=== PATIENT | male | born 1945 | race Caucasian/White ===

== ENCOUNTER 2018-06-30 14:10 | Observation (INO) | payer BC, MEDICARE, OTHER ==
--- NOTE | 2018-06-30 14:43 | ED Physician Documentation ---
PD HPI ALTERED MENTAL STATUS - Stated complaint Stated Complaint: LETHARGIC - Chief complaint Chief Complaint: General - History obtained from History obtained from: Patient - History of Present Illness Timing - onset: How many days ago (3) Timing - duration: Days (3) Timing - details: Gradual onset, Still present Quality / character: Other (general weakness and some confused) Associated symptoms: No: Fever Contributing factors: Anticoagulated, Intoxicated (says he had not had a drink for 1 1/2 days, and then was just 2 drinks.). No: New medication, Recent injury Basline status: Alert and oriented X 3, Ambulatory Similar symptoms before: Has not had sx before Recently seen: Not recently seen Review of Systems Constitutional: denies: Fever, Chills, Myalgias Cardiac: denies: Chest pain / pressure, Palpitations, Pedal edema, Calf pain Respiratory: reports: Dyspnea. denies: Cough, Wheezing GI: denies: Abdominal Pain, Nausea, Vomiting, Diarrhea Neurologic: reports: Generalized weakness, Confused. denies: Focal weakness, Numbness, Headache, Head injury Psychiatric: denies: Depressed PD PAST MEDICAL HISTORY - Past Medical History Cardiovascular: Atrial fibrillation Respiratory: None Neuro: Other (brain tumor, slow growing) Endocrine/Autoimmune: None - Present Medications Home Medications: Ambulatory Orders Medication Instructions Recorded Confirmed Albuterol Sulf [Ventolin Hfa 1 applic INH DAILY 06/30/18 06/30/18 Inhaler] Apixaban [Eliquis] 1 tab PO DAILY 06/30/18 06/30/18 Atorvastatin [Lipitor] 1 tab PO DAILY 06/30/18 06/30/18 Flu Vacc [id number](65Yr Up)/Pf 06/30/18 [Fluzone High-Dose 2017- Syr] Fluconazole 50 mg PO DAILY 06/30/18 06/30/18 Fluticasone/Vilanterol [Breo 1 applic INH DAILY 06/30/18 06/30/18 Ellipta 100-25 Mcg INH] Levetiracetam [Keppra Xr] 1 tab PO DAILY 06/30/18 06/30/18 Metoprolol Succinate [Toprol Xl] 1 tab PO DAILY 06/30/18 06/30/18 Tamsulosin [Flomax] 1 tab PO DAILY 06/30/18 06/30/18 diltiaZEM [Cardizem] 240 mg PO DAILY 06/30/18 06/30/18 - Allergies Allergies/Adverse Reactions: Allergies Allergy/AdvReac Type Severity Reaction Status Date / Time No Known Drug Allergies Allergy Verified 06/30/18 14:20 PD ED PE NORMAL - Vitals Vital signs reviewed: Yes - General General: Alert and oriented X 3, No acute distress, Well developed/nourished - HEENT HEENT: Pharynx benign, Other (smell of alcohol on breath) - Neck Neck: Supple, no meningeal sign, No adenopathy - Cardiac Cardiac: No murmur. 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, No motor deficit, Normal speech Eye Opening: Spontaneous Motor: Obeys Commands Verbal: Oriented GCS Score: 15 - Psych Psych: Normal mood Results - Vitals Vitals: Vital Signs - 24 hr 06/30/18 06/30/18 06/30/18 14:12 15:00 15:40 Temperature 36.6 C Heart Rate 121 H 144 H 136 H Respiratory 18 16 11 L Rate Blood Pressure 123/73 121/91 H 128/93 H O2 Saturation 99 96 98 06/30/18 06/30/18 06/30/18 15:50 15:52 15:58 Temperature Heart Rate 100 94 87 Respiratory 18 15 14 Rate Blood Pressure 121/81 H 120/82 H O2 Saturation 97 97 98 06/30/18 06/30/18 06/30/18 16:11 16:15 16:17 Temperature Heart Rate 82 76 84 Respiratory 11 L 12 16 Rate Blood Pressure 103/80 120/75 100/63 O2 Saturation 96 92 94 Oxygen O2 Source Room air - Labs Labs: Laboratory Tests 06/30/18 06/30/18 06/30/18 14:45 14:55 15:45 WBC 7.2 RBC 4.35 L Hgb 14.7 Hct 43.2 MCV 99.3 H MCH 33.7 H MCHC 34.0 RDW 14.8 Plt Count 196 MPV 9.2 Neut # (Auto) 5.0 Lymph # (Auto) 1.4 L [place] # (Auto) 0.7 Eos # (Auto) 0.0 Baso # (Auto) 0.0 Absolute Nucleated RBC 0.01 Nucleated RBC % 0.1 Sodium 139 Potassium 4.2 Chloride 106 Carbon Dioxide 21 Anion Gap 12.0 BUN 9 Creatinine 0.6 Estimated GFR (MDRD) 132 Glucose 89 Calcium 8.2 L Magnesium 1.9 Total Bilirubin 1.9 H AST 89 H ALT 53 Alkaline Phosphatase 96 B-Natriuretic Peptide Total Protein 6.5 L Albumin 3.7 Globulin 2.8 Albumin/Globulin Ratio 1.3 Lipase 32 TSH Urine Color YELLOW Urine Clarity CLEAR Urine pH 6.0 Ur Specific [place] 1.020 Urine Protein NEGATIVE Urine Glucose (UA) NEGATIVE Urine Ketones NEGATIVE Urine Occult Blood TRACE-INTA Urine Nitrite NEGATIVE Urine Bilirubin NEGATIVE Urine Urobilinogen 1 (NORMAL) Ur Leukocyte Esterase NEGATIVE Ur Microscopic Review NOT INDICATED Urine Culture Comments NOT INDICATED Ethyl Alcohol 206.2 06/30/18 06/30/18 15:45 15:45 WBC RBC Hgb Hct MCV MCH MCHC RDW Plt Count MPV Neut # (Auto) Lymph # (Auto) [place] # (Auto) Eos # (Auto) Baso # (Auto) Absolute Nucleated RBC Nucleated RBC % Sodium Potassium Chloride Carbon Dioxide Anion Gap BUN Creatinine Estimated GFR (MDRD) Glucose Calcium Magnesium Total Bilirubin AST ALT Alkaline Phosphatase B-Natriuretic Peptide 174 H Total Protein Albumin Globulin Albumin/Globulin Ratio Lipase TSH 0.69 Urine Color Urine Clarity Urine pH Ur Specific [place] Urine Protein Urine Glucose (UA) Urine Ketones Urine Occult Blood Urine Nitrite Urine Bilirubin Urine Urobilinogen Ur Leukocyte Esterase Ur Microscopic Review Urine Culture Comments Ethyl Alcohol - Rads (name of study) chest xray Radiology: Prelim report reviewed (no CHF) head CT Radiology: Prelim report reviewed (brain mass iwth mild edema, similar to 2010. no ICH nor acute process. ) PD MEDICAL DECISION MAKING - ED course Complexity details: reviewed results (There is no obvious significant change in his brain tumor compared to 2010 on our imaging. This is a known process for him. He does have an elevated alcohol level and this may be contributing to some of the tiredness and lethargy over the last few days. He has a rapid A. fib and this could also be likely a cause of the fatigue over the last few days. He does not feel the symptoms here so is unclear how long he has been in the rapid A. fib. He has a couple of empty medicine bottles at home according to his that had been empty for a few days and had not made it to the pharmacy. Is not sure which of the medicines he is out of. It could make sense if he is out of his diltiazem or metoprolol. At this point his rate is improved with IV medications but is creeping back up to 110 now after just a short time. I do not feel that it is actually rate controlled at this point. He may need repeat dosing IV and oral and would want to ensure that his general fatigue and symptoms are improved.), re-evaluated patient (Took several doses IV to get rate control and then was creeping back up to 110 rate. I think needs repeat IV and resume PO. ), considered differential, d/w patient - Sepsis Event Vital Signs: Vital Signs - 24 hr 06/30/18 06/30/18 06/30/18 14:12 15:00 15:40 Temperature 36.6 C Heart Rate 121 H 144 H 136 H Respiratory 18 16 11 L Rate Blood Pressure 123/73 121/91 H 128/93 H O2 Saturation 99 96 98 06/30/18 06/30/18 06/30/18 15:50 15:52 15:58 Temperature Heart Rate 100 94 87 Respiratory 18 15 14 Rate Blood Pressure 121/81 H 120/82 H O2 Saturation 97 97 98 06/30/18 06/30/18 06/30/18 16:11 16:15 16:17 Temperature Heart Rate 82 76 84 Respiratory 11 L 12 16 Rate Blood Pressure 103/80 120/75 100/63 O2 Saturation 96 92 94 Oxygen O2 Source Room air Departure - Departure Disposition: ED Place in Observation Clinical Impression: Generalized weakness, Atrial fibrillation with rapid ventricular response Alcohol intoxication Qualifiers: Complication of substance-induced condition: uncomplicated Qualified Code(s): F10.920 - Alcohol use, unspecified with intoxication, uncomplicated Condition: Stable Record reviewed to determine appropriate education?: Yes Discharge Date/Time: 06/30/18 17:45
[2018-06-30 15:08] LABS: BILIRUBIN,URINE NEGATIVE (NEGATIVE); GLUCOSE, URINE (UA) NEGATIVE (NEGATIVE); KETONES,URINE (UA) NEGATIVE (NEGATIVE); LEUKOCYTE ESTERASE, URINE NEGATIVE (NEGATIVE); NITRITE,URINE NEGATIVE (NEGATIVE); OCCULT BLOOD,URINE TRACE-INTA (NEGATIVE); PROTEIN,URINE NEGATIVE (NEGATIVE); UROBILINOGEN,URINE 1 (NORMAL) E.U./dL (NORMAL)
[2018-06-30] MEDS ORDERED: SODIUM CHLORIDE 0.9% 1,000 ML IV ONE (15:16)
[2018-06-30] MEDS ORDERED: diltiaZEM INJ 5 MG/ML VIAL IVP STA ×3 (15:16→16:53)
[2018-06-30 15:18] LABS: CLARITY,URINE CLEAR (CLEAR)
[2018-06-30 15:35] LABS: BASOPHILS % (AUTO) 0.6 %; EOSINOPHILS % (AUTO) 0.7 %; HGB - HEMOGLOBIN 14.7 g/dL (14.0-18.0); LYMPHOCYTES # (AUTO) 1.4 10^3/uL (1.5-3.5); MEAN CORPUSCULAR HEMOGLOBIN 33.7 pg (27.0-31.0); MEAN CORPUSCULAR VOLUME 99.3 fL (80.0-94.0); MEAN PLATELET VOLUME 9.2 fL (7.4-11.4); MONOCYTES # (AUTO) 0.7 10^3/uL (0.0-1.0); MONOCYTES % (AUTO) 9.3 %; NEUTROPHILS % (AUTO) 69.4 %; PLT - PLATELET COUNT 196 10^3/uL (130-450); RED BLOOD COUNT 4.35 10^6/uL (4.70-6.10); RED CELL DISTRIBUTION WIDTH 14.8 % (12.0-15.0); WHITE BLOOD COUNT 7.2 x10^3/uL (4.8-10.8)
--- NOTE | 2018-06-30 15:53 | CT Report ---
Reason: recent fall? on eliquis, lethargic Procedure Date: 06/30/2018 Accession Number: [id number] / [id number] Procedure: CT - Head W/O CPT Code: FULL RESULT: EXAM: CT HEAD EXAM DATE: 06/30/2018 03:29 PM. CLINICAL HISTORY: Recent fall. Lethargy. On Eliquis. COMPARISON: CT head and MRI brain 04/04/2010. TECHNIQUE: Multiaxial CT images were obtained from the foramen magnum to the vertex. Reformats: Sagittal and coronal. IV contrast: None. In accordance with CT protocol optimization, one or more of the following dose reduction techniques were utilized for this exam: automated exposure control, adjustment of mA and/or KV based on patient size, or use of iterative reconstructive technique. FINDINGS: Parenchyma: Similar size and interval increased calcification of an ill-defined partially calcified mass in the anterior right frontal lobe and anterior right temporal lobe, the largest component in the anterior-inferior frontal lobe measuring approximately 2.3 x 2.1 cm (12/10). Slightly increased adjacent low attenuation in the right frontal lobe possibly representing edema. No intraparenchymal hemorrhage or CT findings of evolving acute/subacute infarct. Alonso-white matter differentiation is distinct. Extraaxial Spaces: Normal for age. No subdural or epidural collections identified. Ventricles: Normal in size and position. Sinuses and Orbits: Imaged paranasal sinuses, orbits, and mastoids show no significant abnormality. Bones: Interval right frontal plate. Other: Left lens replacement. The visualized superficial soft tissues are unremarkable; no hematoma or edema is evident. IMPRESSION: 1. Similar size and increased calcification of ill-defined partially calcified mass in the anterior right frontal lobe and anterior right temporal lobe. 2. Slightly increased adjacent low attenuation in the right frontal lobe possibly representing edema. 3. No intracranial bleed. [facility]
--- NOTE | 2018-06-30 16:00 | XRAY Report ---
Reason: chest pain left sided Procedure Date: 06/30/2018 Accession Number: [id number] / [id number] Procedure: XR - Chest 2 View X-Ray CPT Code: 85867 FULL RESULT: EXAM: CHEST RADIOGRAPHY EXAM DATE: 06/30/2018 03:38 PM. CLINICAL HISTORY: Chest pain left sided. COMPARISON: None. TECHNIQUE: 2 views. FINDINGS: Lungs/Pleura: There is a linear density in the right mid lung. The left lung is clear. Lung volumes are normal. Negative for pleural effusion and pneumothorax. Mediastinum: Heart and mediastinal contours are unremarkable. Other: None. IMPRESSION: 1. No acute process in the left chest. Mild right midlung atelectasis or scar. [facility]
[2018-06-30 16:03] LABS: ALBUMIN 3.7 g/dL (3.2-5.5); ALBUMIN/GLOBULIN RATIO 1.3 (1.0-2.2); BILIRUBIN,TOTAL 1.9 mg/dL (0.2-1.0); CALCIUM 8.2 mg/dL (8.5-10.3); CREATININE 0.6 mg/dL (0.6-1.2); MAGNESIUM 1.9 mg/dL (1.7-2.8); TOTAL PROTEIN 6.5 g/dL (6.7-8.2)
[2018-06-30] MEDS ORDERED: SODIUM CHLORIDE FLUSH 0.9% 10 ML SYRINGE IVP PRN (16:56)
[2018-06-30] MEDS ORDERED: ONDANSETRON 4 MG/2 ML VIAL IVP PRN (16:56)
[2018-06-30] MEDS ORDERED: ZOLPIDEM 5 MG TABLET PO PRN (16:56)
[2018-06-30] MEDS ORDERED: PROCHLORPERAZINE 10 MG/2 ML VIAL IVP PRN (16:56)
[2018-06-30] MEDS ORDERED: PROMETHAZINE 25 MG/1 ML VIAL IM PRN (16:56)
--- NOTE | 2018-06-30 17:06 | HISTORY & PHYSICAL EXAMINATION ---
Chief Complaint - Chief Complaint Chief Complaint: Fatigue History of Present Illness - Admitted From Admitted From:: Emergency Departement - History Obtained From Records Reviewed: Yes History obtained from: Patient and his Exam Limitations: None - History of Present Illness HPI Comment/Other: Patient is a 73-year-old gentleman with a past medical history significant for oligodendroglioma status post chemotherapy currently on Keppra for seizure prevention with minimal residual symptoms, atrial fibrillation on Eliquis, hypertension, hyperlipidemia, history of coronary artery disease status post stent, asthma and osteoarthritis who presented to the emergency department with a chief complaint of fatigue. The patient states that over the last 2 days he has been having increasing fatigue, been feeling sleepy all throughout the day and has had an unsteady gait. The patient also states that he has had some shor tness of breath with exertion which is new for him. The patient's partner states that the patient has been sleeping all throughout the day since yesterday. She also notes that he has had decreased appetite. The patient states that he is recently run out of 2 bottles of his pills but did not know which pills that was. The patient denies any chest pain or palpitations. He states that he is a nightly drinker and did drink about a bottle of wine last night. The patient denies any fevers or chills. The patient denies any urinary urgency, urinary frequency or dysuria. The patient denies any headaches, neck stiffness, back pain, skin changes, abdominal pain, nausea, vomiting, diarrhea or any cough. On presentation to the emergency department the patient was afebrile, he was tachycardic with heart rate as high as 144 with normal blood pressure and not in any respiratory distress. The patient underwent routine lab work which revealed a mildly elevated bilirubin and AST otherwise was unremarkable. The patient's TSH was normal. Patient's UA was negative. The patient's blood alcohol level was 206. The patient did undergo a CT of his head which revealed an unchanged ill-defined partially calcified mass in the anterior right frontal lobe and anterior right lobe which represents the patient's oligodendroglioma. The patient also had a chest x-ray which revealed no acute process in the chest. The patient's EKG did reveal atrial fibrillation with a rapid ventricular rate. The patient was given 3 doses of IV diltiazem with each dose the patient's heart rate continued to creep up into the mid 100s. The emergency room physician felt that this was not well controlled A. fib and asked that we place the patient in observation for further rate control. The patient was placed in observation. History - Past Medical History Cardiovascular: reports: Hypertension, High cholesterol, Coronary artery disease, Atrial fibrillation Respiratory: reports: Asthma Neuro: reports: Seizure disorder, Other (Brain tumor) Endocrine/Autoimmune: reports: None GI: reports: None : reports: None Musculoskeletal: reports: Osteoarthritis Other Past Medical History: Ogliodedroma(brain tumor) with oral chemo(now done),keppra for SZ associated with tumor, chronic right hip pain - Past Surgical History Ortho: reports: Knee replacement, Rotator cuff repair, Shoulder arthroplasty, Other - Family & Social History Family History: Mother: (Mother and father both lived into their 80s and were healthy), Father: , Brother: , Cancer (Patient's brother had Hodgkin's lymphoma and in his 20s) Living arrangement: At home Living Situation: Alone Social History Notes: The patient lives in [place], [place]. He lives a few doors down from his partner. He states that he is still completely independent despite the brain tumor. He ambulates without any assistance device. He has a dog whom he walks daily. He hikes every Monday. He is a retired psychologist. He moved to [facility] just 4 months ago. Previously he lived in [place]. He has no biological children. He does not smoke cigarettes. He does drink alcohol he states up to a bottle of wine a night although his partner states that he does drink more than what he is telling us. He denies any illicit drug use. - POLST Patient has POLST: No POLST Status: Full Code Meds/Allgy - Home Medications Home Medications: Ambulatory Orders Medication Instructions Recorded Confirmed Albuterol Sulf [Ventolin Hfa 1 applic INH DAILY 06/30/18 06/30/18 Inhaler] Apixaban [Eliquis] 1 tab PO DAILY 06/30/18 06/30/18 Atorvastatin [Lipitor] 1 tab PO DAILY 06/30/18 06/30/18 Flu Vacc [id number](65Yr Up)/Pf 06/30/18 [Fluzone High-Dose Syr] Fluconazole 50 mg PO DAILY 06/30/18 06/30/18 Fluticasone/Vilanterol [Breo 1 applic INH DAILY 06/30/18 06/30/18 Ellipta 100-25 Mcg INH] Levetiracetam [Keppra Xr] 1 tab PO DAILY 06/30/18 06/30/18 Metoprolol Succinate [Toprol Xl] 1 tab PO DAILY 06/30/18 06/30/18 Tamsulosin [Flomax] 1 tab PO DAILY 06/30/18 06/30/18 diltiaZEM [Cardizem] 240 mg PO DAILY 06/30/18 06/30/18 - Allergies Allergies/Adverse Reactions: Allergies Allergy/AdvReac Type Severity Reaction Status Date / Time No Known Drug Allergies Allergy Verified 06/30/18 14:20 Review of Systems - Other Findings Other Findings: A comprehensive review of systems was performed the pertinent positives and negatives are stated above in the HPI and the remainder of the review of systems is negative. Prior Level of Functionality: Patient is completely independent with all his ADLs Exam - Vital Signs Reviewed Vital Signs: Yes Vital Signs: Vital Signs x48h Temp Pulse Resp BP Pulse Ox 06/30/18 16:17 84 16 100/63 94 06/30/18 16:15 76 12 120/75 92 06/30/18 16:11 82 11 L 103/80 96 06/30/18 15:58 87 14 98 06/30/18 15:52 94 15 120/82 H 97 06/30/18 15:50 100 18 121/81 H 97 06/30/18 15:40 136 H 11 L 128/93 H 98 06/30/18 15:00 144 H 16 121/91 H 96 06/30/18 14:12 36.6 C 121 H 18 123/73 99 - Physical Exam General Appearance: positive: No acute distress, Alert, Other (Slightly slow to answer questions, Breath smells like alcohol) Eyes Bilateral: positive: Normal inspection, PERRL, EOMI, No lid inflammation, Conjunctivae nml, No scleral icterus ENT: positive: ENT inspection nml, Pharynx nml, Dry mucous membranes. negative: Purulent nasal drainage, Pharyngeal erythema, Oral lesions Neck: positive: Nml inspection, Thyroid nml, No JVD, Trachea midline. negative: Thyromegaly, Lymphadenopathy (R), Lymphadenopathy (L), Carotid bruit, Tracheal deviation Respiratory: positive: Chest non-tender, No respiratory distress, Wheezes (Scattered wheezes). negative: Rales, Rhonchi Cardiovascular: positive: No murmur, No gallop, Irregularly irregular Peripheral Pulses: positive: 2+ Abdomen: positive: Non-tender, No organomegaly, Nml bowel sounds, No distention. negative: Tenderness, Guarding, Rebound, Hepatomegaly Back: positive: Nml inspection. negative: CVA tenderness (R), CVA tenderness (L) Skin: positive: Color nml, No rash, Warm, Dry. negative: Cyanosis, Diaphoresis, Pallor, Skin rash Extremities: positive: Non-tender, Full ROM, Nml appearance, No pedal edema Neurologic/Psychiatric: positive: Oriented x3, CN's nml (2-12), Motor nml, Sensation nml, Mood/affect nml Conclusion/Plan - Problem List (1) Atrial fibrillation with rapid ventricular response Conclusion/Plan: Patient presented to the emergency department with fatigue and shortness of breath with exertion. On presentation the patient was found to be in A. fib with rapid ventricular rate into the 150s. The patient did improve with several doses of IV diltiazem. It appears the patient may have run out of his home diltiazem or metoprolol. The patient's symptoms for the last few days were likely due to his A. fib RVR. Despite the doses of IV diltiazem in the emergency department the patient's rate was not fully controlled therefore he is being placed in observation for monitoring and better rate control. Patient's TSH is normal. Plan: Restart the patient's p.o. metoprolol and diltiazem we will give a dose right away IV diltiazem as needed for rate greater than 110 Telemetry monitoring Echocardiogram Troponins x3 Continue Eliquis (2) Oligodendroglioma Conclusion/Plan: Patient has a history of a oligodendroglioma with minimal residual effects. According to his partner he does have some memory loss but is otherwise fully functional and still hikes every Monday and fully independent. The patient does have some changes of edema on his CT of his head and this could be the cause of his current fatigue and sleepiness and other symptoms. However the patient is also been having A. fib with RVR and was intoxicated on presentation which could also be an explanation for his current symptoms. The patient has been having some ataxic gait again this could be from his alcohol intoxication. Plan: Patient will be continued on his dose of Keppra for seizure prevention We will monitor if the patient's symptoms persist of ataxia and fatigue or lethargy we will need to consider an MRI and possible consultation from oncology. (3) Alcohol intoxication Conclusion/Plan: Patient has a history of alcohol abuse and on presentation is intoxicated with a blood alcohol level of 206. Since the patient still has quite a bit of alcohol on board I doubt that he will go into withdrawal while he is hospitalized. If he does go into withdrawal we will place him on [facility] protocol. The patient was counseled on the need to cut down on his drinking. He does not believe he is an alcoholic. Qualifiers: Complication of substance-induced condition: uncomplicated Qualified Code(s): F10.920 - Alcohol use, unspecified with intoxication, uncomplicated (4) Hypertension Conclusion/Plan: Patient has a history of hypertension blood pressure is well controlled on presentation to the emergency department. The patient will be continued on his home doses of metoprolol and diltiazem which also are for rate control of his atrial fibrillation. We will continue to monitor the patient's blood pressure and titrate medications as needed. Qualifiers: Hypertension type: essential hypertension Qualified Code(s): I10 - Essential (primary) hypertension (5) Hyperlipidemia Conclusion/Plan: Patient is a history of hyperlipidemia and is on Lipitor we will continue the patient's Lipitor was hospitalized. Stable Qualifiers: Hyperlipidemia type: unspecified Qualified Code(s): E78.5 - Hyperlipidemia, unspecified (6) Asthma Conclusion/Plan: Patient has a history of asthma and is currently stable without any exacerbation. Patient will be placed on budesonide twice daily and formoterol twice daily along with albuterol as needed while he is hospitalized. Qualifiers: Asthma severity: mild Asthma persistence: intermittent Asthma complication type: uncomplicated Qualified Code(s): J45.20 - Mild intermittent asthma, uncomplicated - Lab Results Lab results reviewed: Yes Fish Bones: 06/30/18 14:45 06/30/18 15:45 Other Lab Results: Laboratory Results WBC 7.2 x10^3/uL (4.8-10.8) 06/30/18 14:45 RBC 4.35 10^6/uL (4.70-6.10) L 06/30/18 14:45 Hgb 14.7 g/dL (14.0-18.0) 06/30/18 14:45 Hct 43.2 % (42.0-52.0) 06/30/18 14:45 MCV 99.3 fL (80.0-94.0) H 06/30/18 14:45 MCH 33.7 pg (27.0-31.0) H 06/30/18 14:45 MCHC 34.0 g/dL (32.0-36.0) 06/30/18 14:45 RDW 14.8 % (12.0-15.0) 06/30/18 14:45 Plt Count 196 10^3/uL (130-450) 06/30/18 14:45 MPV 9.2 fL (7.4-11.4) 06/30/18 14:45 Neut # (Auto) 5.0 10^3/uL (1.5-6.6) 06/30/18 14:45 Lymph # (Auto) 1.4 10^3/uL (1.5-3.5) L 06/30/18 14:45 Parker # (Auto) 0.7 10^3/uL (0.0-1.0) 06/30/18 14:45 Eos # (Auto) 0.0 10^3/uL (0.0-0.7) 06/30/18 14:45 Baso # (Auto) 0.0 10^3/uL (0.0-0.1) 06/30/18 14:45 Absolute Nucleated RBC 0.01 x10^3/uL 06/30/18 14:45 Nucleated RBC % 0.1 /100WBC 06/30/18 14:45 Sodium 139 mmol/L (135-145) 06/30/18 15:45 Potassium 4.2 mmol/L (3.5-5.0) 06/30/18 15:45 Chloride 106 mmol/L (101-111) 06/30/18 15:45 Carbon Dioxide 21 mmol/L (21-32) 06/30/18 15:45 Anion Gap 12.0 (6-13) 06/30/18 15:45 BUN 9 mg/dL (6-20) 06/30/18 15:45 Creatinine 0.6 mg/dL (0.6-1.2) 06/30/18 15:45 Estimated GFR (MDRD) 132 (>89) 06/30/18 15:45 Glucose 89 mg/dL (70-100) 06/30/18 15:45 Calcium 8.2 mg/dL (8.5-10.3) L 06/30/18 15:45 Magnesium 1.9 mg/dL (1.7-2.8) 06/30/18 15:45 Total Bilirubin 1.9 mg/dL (0.2-1.0) H 06/30/18 15:45 AST 89 IU/L (10-42) H 06/30/18 15:45 ALT 53 IU/L (10-60) 06/30/18 15:45 Alkaline Phosphatase 96 IU/L (42-121) 06/30/18 15:45 B-Natriuretic Peptide 174 pg/mL (5-100) H 06/30/18 15:45 Total Protein 6.5 g/dL (6.7-8.2) L 06/30/18 15:45 Albumin 3.7 g/dL (3.2-5.5) 06/30/18 15:45 Globulin 2.8 g/dL (2.1-4.2) 06/30/18 15:45 Albumin/Globulin Ratio 1.3 (1.0-2.2) 06/30/18 15:45 Lipase 32 U/L (22-51) 06/30/18 15:45 TSH 0.69 uIU/mL (0.34-5.60) 06/30/18 15:45 Urine Color YELLOW 06/30/18 14:55 Urine Clarity CLEAR (CLEAR) 06/30/18 14:55 Urine pH 6.0 PH (5.0-7.5) 06/30/18 14:55 Ur Specific [place] 1.020 (1.002-1.030) 06/30/18 14:55 Urine Protein NEGATIVE mg/dL (NEGATIVE) 06/30/18 14:55 Urine Glucose (UA) NEGATIVE mg/dL (NEGATIVE) 06/30/18 14:55 Urine Ketones NEGATIVE mg/dL (NEGATIVE) 06/30/18 14:55 Urine Occult Blood TRACE-INTA (NEGATIVE) 06/30/18 14:55 Urine Nitrite NEGATIVE (NEGATIVE) 06/30/18 14:55 Urine Bilirubin NEGATIVE (NEGATIVE) 06/30/18 14:55 Urine Urobilinogen 1 (NORMAL) E.U./dL (NORMAL) 06/30/18 14:55 Ur Leukocyte Esterase NEGATIVE (NEGATIVE) 06/30/18 14:55 Ur Microscopic Review NOT INDICATED 06/30/18 14:55 Urine Culture Comments NOT INDICATED 06/30/18 14:55 Ethyl Alcohol 206.2 mg/dL 06/30/18 15:45 - Diagnostic Imaging Results Diagnostic Imaging Results: positive: Final report reviewed Diagnostic Imaging Results Comments: Chest x-ray Impression: 1. No acute process in the left chest. Mild right midlung atelectasis or scar. CT head Impression: 1. Similar size and increased calcification of ill-defined partially calcified mass in the anterior right frontal lobe and anterior right temporal lobe. 2. Slightly increased adjacent low-attenuation in the right frontal lobe possibly representing edema. 3. No intracranial bleed. - EKG Results EKG Interpreted Independently: Yes EKG Findings: Atrial fibrillation with a rapid ventricular rate Core Measures - Anticipated LOS I expect patient to be DC'd or transferred within 96 hours.: Yes - DVT/VTE - Prophylaxis VTE/DVT Device ordered at admit?: Yes
[2018-06-30] MEDS: SODIUM CHLORIDE FLUSH 0.9% 10 ML SYRINGE IVP SCH (18:04)
[2018-06-30] MEDS: SODIUM CHLORIDE 0.9% 1,000 ML IV SCH (18:04)
[2018-06-30] MEDS ORDERED: ALBUTEROL NEB 2.5 MG/3 ML INH PRN (18:26)
[2018-06-30] MEDS ORDERED: BUDESONIDE 180MCG FLEXHALER INH SCH (19:00)
[2018-06-30] MEDS: FORMOTEROL FUMARATE NEB 20 MCG/2 ML INH SCH (19:37)
[2018-06-30] MEDS: METOPROLOL SUCCINATE 25 MG TABLET PO SCH (20:05)
[2018-06-30] MEDS: levETIRAcetam 250 MG TABLET PO SCH (20:07)
[2018-07-01] MEDS: SODIUM CHLORIDE 0.9% 1,000 ML IV SCH (03:56)
[2018-07-01 04:21] LABS: BASOPHILS # (AUTO) 0.1 10^3/uL (0.0-0.1); BASOPHILS % (AUTO) 1.4 %; EOSINOPHILS # (AUTO) 0.1 10^3/uL (0.0-0.7); EOSINOPHILS % (AUTO) 1.5 %; HGB - HEMOGLOBIN 13.8 g/dL (14.0-18.0); LYMPHOCYTES % (AUTO) 19.8 %; MEAN CORPUSCULAR HGB CONC 34.3 g/dL (32.0-36.0); MEAN CORPUSCULAR VOLUME 99.2 fL (80.0-94.0); MEAN PLATELET VOLUME 8.6 fL (7.4-11.4); MONOCYTES # (AUTO) 0.5 10^3/uL (0.0-1.0); MONOCYTES % (AUTO) 10.3 %; NEUTROPHILS # (AUTO) 3.4 10^3/uL (1.5-6.6); PLT - PLATELET COUNT 143 10^3/uL (130-450); RED BLOOD COUNT 4.05 10^6/uL (4.70-6.10); RED CELL DISTRIBUTION WIDTH 14.7 % (12.0-15.0)
[2018-07-01 04:25] LABS: INR 1.3 (0.8-1.2); PT - PROTHROMBIN TIME 14.1 secs (9.9-12.6)
[2018-07-01 05:03] LABS: ALBUMIN 3.4 g/dL (3.2-5.5); ALBUMIN/GLOBULIN RATIO 1.3 (1.0-2.2); ALKALINE PHOSPHATASE 94 IU/L (42-121); ALT ALANINE AMINOTRANSFERASE 44 IU/L (10-60); AST ASPARTATE AMINOTRANSFERASE 66 IU/L (10-42); BILIRUBIN,TOTAL 3.4 mg/dL (0.2-1.0); BUN - BLOOD UREA NITROGEN 10 mg/dL (6-20); CALCIUM 7.9 mg/dL (8.5-10.3); CARBON DIOXIDE - CO2 22 mmol/L (21-32); CHLORIDE 104 mmol/L (101-111); CHOL/HDL RATIO 1.7 (<5.0); CHOLESTEROL 147 mg/dL; CREATININE 0.7 mg/dL (0.6-1.2); GFR - MDRD 111 (>89); GLUCOSE 96 mg/dL (70-100); HDL CHOLESTEROL 85 mg/dL; LDL CHOLESTEROL,CALCULATED 54 mg/dL; LDL/HDL RATIO 0.6 (<3.6); MAGNESIUM 1.6 mg/dL (1.7-2.8); PHOSPHORUS 3.7 mg/dL (2.5-4.6); SODIUM 138 mmol/L (135-145); VLDL CHOLESTEROL 8 mg/dL
[2018-07-01] MEDS: SODIUM CHLORIDE FLUSH 0.9% 10 ML SYRINGE IVP SCH ×2 (06:09→07:42)
[2018-07-01] MEDS ORDERED: BUDESONIDE 0.5 MG/2 ML NEB INH SCH (07:00)
[2018-07-01] MEDS: FORMOTEROL FUMARATE NEB 20 MCG/2 ML INH SCH (07:45)
[2018-07-01] MEDS ORDERED: FAMOTIDINE 20 MG TABLET PO SCH (09:00)
[2018-07-01] MEDS ORDERED: diltiaZEM CD 240 MG CAPSULE PO SCH (09:00)
[2018-07-01] MEDS ORDERED: LEVETIRACETAM PO SCH (09:00)
[2018-07-01] MEDS ORDERED: APIXABAN 5 MG TABLET PO SCH (09:00)
[2018-07-01] MEDS ORDERED: TAMSULOSIN 0.4 MG CAPSULE PO SCH (09:00)
[2018-07-01] MEDS ORDERED: ATORVASTATIN 10 MG TABLET PO SCH (09:00)
[2018-07-01] MEDS ORDERED: ALBUTEROL SULF INH SCH (09:00)
[2018-07-01] MEDS ORDERED: FLUCONAZOLE 100 MG TABLET PO SCH (09:00)
[2018-07-01] MEDS ORDERED: POLYETHYLENE GLYCOL 3350 17 GM PACKET PO SCH (09:00)
[2018-07-01] MEDS: METOPROLOL SUCCINATE 25 MG TABLET PO SCH (10:04)
[2018-07-01] MEDS: levETIRAcetam 250 MG TABLET PO SCH (10:04)
[2018-07-01] MEDS ORDERED: SODIUM CHLORIDE 0.9% 1,000 ML IV SCH (10:19)
[2018-07-01] MEDS ORDERED: MAGNESIUM OXIDE 400 MG TABLET PO SCH (10:20)
[2018-07-01 11:31] VITALS: BP 135/81
--- NOTE | 2018-07-01 12:20 | Discharge Plan ---
Discharge Plan Disposition: 01 Home, Self Care Condition: Stable Prescriptions: diltiaZEM CD [Cardizem Cd] 240 mg PO DAILY #30 capsule Lorazepam [Ativan] 1 mg PO TID PRN #12 tablet PRN Reason: Alcohol Withdrawal Diet: Cardiac Activity Restrictions: Activity as Tolerated Instruction Topics: Alcoholism, Alcoholism Part Solution, Alcoholism Get Help, Addiction Alcohol Signs Additional Instructions or Follow Up instructions: Resume all your pre-hospital medications. You are somewhat dehydrated, therefore drink plenty of fluids for the next 1-2 days (but not alcohol or caffeine drinks). A 1 month prescription for Dilt XR 240 mg has been ordered, but you must get a new prescription with refills from your doctor. Stop drinking alcohol in excess. If you experience alcohol withdrawal symptoms, take the Ativan, which has also been newly prescribed for you. Refills, if needed, would also come from your PCP. See your PCP in follow-up in 5-7 days. If you have new or worsening symptoms, come back to the ER. No Smoking: If you smoke, Please STOP! Call for help. Follow-up with: Manan Hodge MD [Primary Care Provider] -
--- NOTE | 2018-07-04 14:57 | DISCHARGE SUMMARY ---
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 He has a history of oligodendroglioma, had chemotherapy and is on Keppra for seizure prevention, has atrial fib on Eliquis, history of hypertension, coronary artery disease with stenting, asthma, and osteoarthritis. The patient presented to the emergency room complaining of fatigue over 2 days, being sleepy and having an unsteady gait. The patient's girlfriend also said that the patient was sleeping all throughout the day for the past 1 day. He reported a decreased appetite and admitted that he had run out of 1 or possibly 2 of his pills (Metoprolol or Cardizem he thought). The patient reported being a nightly drinker of 1 bottle of wine a night, but the girlfriend reported he probably drinks even more than that. There were no other symptoms, no signs of infection with fever, no GI symptoms. In the ER, he was found to be afebrile, stable blood pressure, but tachycardic in atrial fib with a rate of 144. He received several doses of IV Cardizem, which helped his heart rate decrease to about 110, but he was placed in Observation status for further rate control and evaluation of the marked fatigue. HOSPITAL COURSE AND DISCHARGE DIAGNOSES 1. Fatigue and weakness. The patient had troponins cycled x3 that were negative. He had no fever throughout his stay here or elevation of white count to consider infection. The patient was dehydrated with a dry oral mucosa on exam and he was mildly orthostatic during vital sign checks. This improved with IV hydration. By the following day, he was more awake, admitted that he drank alcohol heavily and did ask for assistance to quit. He was seen by physical therapy and had a normal evaluation, normal gait and was felt safe to discharge. 2. Atrial fibrillation with rapid ventricular response. The IV diltiazem helped control the rate as well as IV rehydration. He was discharged with a new prescription of Diltiazem CD 240 mg daily, which he had definitely run out of and had no further refills. The patient had an Echocardiogram while here that showed normal LV size and EF of 55-60%, right ventricle upper limits of normal in size with normal RV function, large left and right atria, mild mitral regurgitation and tricuspid regurgitation and PA pressure normal. He also had a TSH that was lower limit of normal at 0.69. The patient was kept on his other medications such as Eliquis and Metoprolol while here. 3. Alcohol abuse. The patient's initial toxicology screen showed alcohol level of 206 despite not having any alcohol intake for possibly a day. This suggested significant alcohol use. At the urging of his girlfriend who was present in the room, he did state he was interested in quitting such heavy use. The social media executive provided him with various resources for this. The patient was advised to resume his prehospital medications, but decrease his alcohol and caffeine drinks, drink plenty of fluids for the next several days since he was dehydrated. He was mildly orthostatic during vital sign checks. Because the patient was at 48 hours after his last alcohol intake, and at risk of having DT's, he was provided with new Ativan tablets of 1 mg to take t.i.d. p.r.n. (12 total tablets were prescribed). 4. Oligodendroglioma. The patient was kept on his Keppra for seizure prophylaxis. He did have a head CT on presentation because of the fatigue and weakness and this showed similar size calcified mass in the anterior right frontal lobe and anterior right temporal lobe, slightly increased adjacent low attenuation in the right frontal lobe, possibly representing edema and there was no intracranial bleed. 5. History of hypertension. The patient's blood pressure medications were continued while here and his blood pressures were in the 130s/80s. 6. History of coronary artery disease. There were no symptoms of angina or dyspnea while here. 7. History of asthma. There was no active asthma symptoms while here. LABORATORY AND IMAGING: Reviewed and summarized above. ALLERGIES: NONE. MEDICATIONS AT THE TIME OF DISCHARGE 1. Ventolin inhaler daily. 2. Eliquis 5 mg only daily according to the reconciliation list. Please note that the Eliquis dose should b.i.d. in a patient with weight over 70 kilograms, age under 75 and creatinine under 1.5 unless there are other extenuating circumstances that I am not aware of. 3. Lipitor 10 mg daily. 4. Fluconazole 50 mg daily. 5. Breo inhaler daily. 6. Keppra XR 500 mg daily. 7. Toprol-XL 25 mg daily. 8. Flomax 0.4 mg daily. 9. Cardizem CD 240 mg daily. 10. New: Ativan 1 mg t.i.d. p.r.n. CONDITION AT DISCHARGE: Fair. PHYSICAL EXAMINATION: VITAL SIGNS: Blood pressure 135/81, heart rate 84-105 in Afib, afebrile, room air saturation 96%. HEENT: Mild oral mucosa dryness and he appears fatigued. NECK: Without JVD or carotid bruits. CHEST: Clear. HEART: Sounds irregular. No murmurs. ABDOMEN: Soft, nontender. No rebound. EXTREMITIES: No edema. NEUROLOGIC: Intact grossly. FOLLOWUP: Patient was advised to see his PCP within a week for further management of his alcohol detoxification if needed and heart rate control if needed. CODE STATUS: FULL CODE. TIME REQUIRED TO COMPLETE THIS ENTIRE DISCHARGE, CHART REVIEW, PATIENT EDUCATION, PRESCRIPTION ORDERS, DICTATION: 30 minutes. cc: Manan Hodge MD TD: 07/04/2018 14:23 MTDD
== END 2018-07-01 13:45 | disposition home or self-care (01) ==
LOC: ED 14:10 → MS2 17:13
PROVIDERS: ADMIT Internal Medicine; ATTEND Internal Medicine
DX: R53.83 Other fatigue (principal); R53.1 Weakness; I48.91 Unspecified atrial fibrillation; T46.1X6A Underdosing of calcium-channel blockers, initial encounter; F10.129 Alcohol abuse with intoxication, unspecified; C71.1 Malignant neoplasm of frontal lobe; E86.0 Dehydration; G40.802 Other epilepsy, not intractable, without status epilepticus; I10 Essential (primary) hypertension; E78.5 Hyperlipidemia, unspecified; I25.10 Atherosclerotic heart disease of native coronary artery without angina pectoris; M19.90 Unspecified osteoarthritis, unspecified site; G89.29 Other chronic pain; J45.20 Mild intermittent asthma, uncomplicated; Y90.7 Blood alcohol level of 200-239 mg/100 ml; Z91.138 Patient's unintentional underdosing of medication regimen for other reason; Z95.5 Presence of coronary angioplasty implant and graft; Z79.01 Long term (current) use of anticoagulants; Z79.899 Other long term (current) drug therapy; Z79.51 Long term (current) use of inhaled steroids
CPT/HCPCS: 36415; 70450; 71046; 80053; 80061; 81003; 83605; 83690; 83735; 83880; 84100; 84443; 84484; 85025; 85610; 93005; 93306; 94640; 96361; 96374; 96376; 97161; 99284; 99285; A9270; G0378; G8978; G8979; G8980; J7626; 80320; 81001; 83721; 87086

== ENCOUNTER 2018-07-04 13:40 | Outpatient (CLI) | payer MEDICARE ==
[2018-07-04 18:27] LABS: ALBUMIN/GLOBULIN RATIO 1.5 (1.0-2.2); BILIRUBIN,TOTAL 2.5 mg/dL (0.2-1.0); CALCIUM 8.7 mg/dL (8.5-10.3); TOTAL PROTEIN 6.6 g/dL (6.7-8.2)
[2018-07-05 12:06] LABS: CREATININE 0.8 mg/dL (0.6-1.2)
== END 2018-07-04 13:41 | disposition home or self-care (01) ==
LOC: LAB.F 13:40
PROVIDERS: ATTEND Nurse Practitioner Family
DX: Z79.01 Long term (current) use of anticoagulants (principal); C71.9 Malignant neoplasm of brain, unspecified; R94.5 Abnormal results of liver function studies
CPT/HCPCS: 36415; 80053

== ENCOUNTER 2018-08-14 14:01 | Outpatient (CLI) | payer MEDICARE | END 2018-08-14 14:02 | disposition home or self-care (01) | LOC: DI 14:01 | PROVIDERS: ATTEND Nurse Practitioner Family | DX: I48.91 Unspecified atrial fibrillation (principal); R42 Dizziness and giddiness; R06.02 Shortness of breath; R06.00 Dyspnea, unspecified; I65.23 Occlusion and stenosis of bilateral carotid arteries | CPT/HCPCS: 93306; 93880 ==

== ENCOUNTER 2018-08-14 14:02 | Outpatient (CLI) | payer MEDICARE ==
--- NOTE | 2018-08-15 08:32 | Ultrasound Report ---
Reason: CORATID BRUIT, AFIB Procedure Date: 08/14/2018 Accession Number: [id number] / [id number] Procedure: US - Carotid Doppler Complete CPT Code: FULL RESULT: EXAM: BILATERAL CAROTID AND VERTEBRAL ARTERY DUPLEX DOPPLER ULTRASOUND: EXAM DATE: 08/14/2018 02:32 PM CLINICAL HISTORY: Carotid bruit, atrial fibrillation. COMPARISON: None. TECHNIQUE: Grayscale imaging, color Doppler, and duplex spectral Doppler were used to evaluate the carotid and vertebral arteries bilaterally. Static images were obtained. FINDINGS: Mild peripheral plaque is noted in both common carotid arteries and carotid bifurcations. No dominant focal plaque. Normal antegrade flow is present in bilateral vertebral arteries. VELOCITIES (cm/sec): Right CCA mid: PSV 70 cm/sec CCA dist: PSV 67 cm/sec ICA prox: PSV 118 cm/sec, EDV 43 cm/sec ICA mid: PSV 88 cm/sec, EDV 27 cm/sec ICA dist: PSV 86 cm/sec, EDV 29 cm/sec ECA: PSV 85 cm/sec Vert: PSV 49 cm/sec Left CCA mid: PSV 69 cm/sec CCA dist: PSV 60 cm/sec ICA prox: PSV 66 cm/sec, EDV 27 cm/sec ICA mid: PSV 68 cm/sec, EDV 30 cm/sec ICA dist: PSV 79 cm/sec, EDV 32 cm/sec ECA: PSV 67 cm/sec Vert: PSV 64 cm/sec ICA diameter stenosis: Right: <50% by velocity and <70% by NASCET criteria. Left: <50% by velocity and <70% by NASCET criteria. IMPRESSION: 1. Mild bilateral carotid artery plaquing. 2. In the right carotid artery there are no elevated carotid artery velocities to suggest hemodynamically significant stenosis. 3. In the left carotid artery there are no elevated carotid artery velocities to suggest hemodynamically significant stenosis. 4. Normal antegrade flow is present in bilateral vertebral arteries. General Recommendations: Stenosis =50% ICA - Follow-up ultrasound 6-12 months Stenosis <50% ICA - High Risk Patient with plaque - Follow-up ultrasound 1-2 years Normal Study but High Risk Patient - Follow-up ultrasound 3-5 years Management recommendations and diagnostic criteria are based on current IAC endorsed standards in Carotid Artery Stenosis: Grayscale and Doppler Ultrasound Diagnosis. Validated velocity measurements with angiographic measurements and velocity criteria are extrapolated from diameter data as defined by the Society of Radiologists in Ultrasound Consensus Conference Radiology 2003; 229;340-346. RADIA
== END 2018-08-14 14:03 | disposition home or self-care (01) ==
LOC: DI 14:02
PROVIDERS: ATTEND Nurse Practitioner Family
DX: I48.91 Unspecified atrial fibrillation (principal); I65.23 Occlusion and stenosis of bilateral carotid arteries
CPT/HCPCS: 93880

== ENCOUNTER 2020-10-20 12:31 | Outpatient (CLI) | payer MEDICARE | END 2020-10-20 12:32 | disposition EMS.NT | LOC: EMS 12:31 | PROVIDERS: ATTEND Surgery | DX: R56.9 Unspecified convulsions (principal) ==

== ENCOUNTER 2021-10-16 09:22 | Outpatient (CLI) | payer MEDICARE ==
--- NOTE | 2021-10-16 10:32 | Ultrasound Report ---
PROCEDURE: Abdomen Limited INDICATIONS: ELEVATED BILIRUBIN TECHNIQUE: Real-time focused scanning was performed of the abdomen, with image documentation. COMPARISON: None FINDINGS: The liver demonstrates mildly enlarged size. The liver demonstrates mildly increased echoge nicity, which limits ultrasound sensitivity for detection of masses. No gallstones or sludge can be seen. The gallbladder wall does not appear thickened. There is no spec ific pericholecystic fluid. The sonographic Aparicio's sign is negative. No biliary ductal dilatation is seen. The common bile duct measures 3 mm. The visualized pancreas is within normal limits. There is a septated cyst measuring 1 cm along the lateral superior aspect of the right kidney. The vi sualized right kidney is otherwise unremarkable. The IVC is patent. IMPRESSION: Mildly enlarged fatty infiltrated liver. No biliary dilatation. Normal gallbladder by ultrasound. Septated 1 cm right renal cyst incidentally noted. Reviewed by: Lobo Huitron MD on 10/16/2021 9:30 AM [facility] Approved by: Lobo Huitron MD on 10/16/2021 9:30 AM [facility] Station ID: [id number]
== END 2021-10-16 09:23 | disposition home or self-care (01) ==
LOC: DI 09:22
PROVIDERS: ATTEND Internal Medicine
DX: K76.0 Fatty (change of) liver, not elsewhere classified (principal)

== ENCOUNTER 2022-07-11 11:55 | Outpatient (CLI) | payer MEDICARE ==
[2022-07-11] MEDS ORDERED: GADOBUTROL 10 MMOL/10 ML VIAL ONE (13:07)
[2022-07-11 13:17] LABS: CREATININE 0.7 mg/dL (0.6-1.2)
[2022-07-11] MEDS ORDERED: GADOBUTROL 10 MMOL/10 ML VIAL IVP ONE (15:42)
--- NOTE | 2022-07-12 09:47 | MRI Report ---
PROCEDURE: Brain W/WO INDICATIONS: OLIGODENDROGLIOMA CONTRAST: IV CONTRAST: Gadavist ml: 7.9 TECHNIQUE: Noncontrast axial T1 spin echo, axial T2 fast spin echo, sagittal and axial FLAIR, coronal T2 fast sp in echo, axial gradient echo, axial diffusion and ADC through the brain. After the administration of contrast, axial and coronal T1 spin echo with fat saturation through the brain. COMPARISON: 04/04/2010 MRI brain FINDINGS: These images demonstrate a slight increase in the size and extent of T2 hyperintense signal abnormali ty within the right inferior frontal lobe. The signal abnormality involves the gyrus rectus and infer ior aspect of the superior frontal gyrus to a larger extent. Cystic change in the central aspect of t he signal abnormality has increased in size, currently measuring 1.1 cm when compared with approximat paulina 4 mm previously. The mass also involves the anterior aspect of the right basal ganglia including the caudate, globus pallidus, and adjacent internal and external capsules the right frontal operculum and insular cortex is involved to a similar degree when compared with the prior study. The anterior temporal lobe increased significantly as well, with a much greater portion of the medial temporal lob e demonstrating more confluent and convincing T2 signal abnormality. In each of the areas of cortical involvement there is mild cortical enlargement with effacement of the regional sulci. There is no si gnal abnormality elsewhere in the brain. Postcontrast images demonstrate a thin linear enhancement niño rrounding the cystic portion of the mass in the right frontal lobe with a few punctate tiny 1-2 mm no dular areas of enhancement, which is thought to represent granulation tissue and microvasculature at the interface and infarct within the center of the mass. No gross orbital abnormality. Fluid level in the right maxillary sinus with mild bilateral maxillary sinus mucosal thickening. Mild mucosal thick ening in the bilateral anterior ethmoid air cells. No mastoid air cell effusion. IMPRESSION: When compared with 2009 MRI brain, there has been a slight increase in the size and extent of nonenha ncing T2 hyperintense signal abnormality consistent with a low-grade tumor such as oligodendroglioma. A cystic lesion in the central portion of the mass within the right frontal lobe has the appearance o f a lacunar type infarct with necrosis of the center of the mass. Reviewed by: Terrence Carter MD on 07/12/2022 9:45 AM PDT Approved by: Terrence Carter MD on 07/12/2022 9:45 AM PDT Station ID: [id number]
== END 2022-07-11 11:56 | disposition home or self-care (01) ==
LOC: DI 11:55
PROVIDERS: ATTEND Physician Assistant
DX: C71.9 Malignant neoplasm of brain, unspecified (principal)
CPT/HCPCS: 36415; 70553; 82565; A9585

== ENCOUNTER 2022-08-31 14:10 | Outpatient (CLI) | payer MEDICARE ==
--- NOTE | 2022-08-31 17:17 | XRAY Report ---
PROCEDURE: Lumbar Spine 2 View INDICATIONS: LUMBAR RADICULOPATHY, RIGHT TECHNIQUE: 2 views of the lumbar spine were acquired. COMPARISON: None. FINDINGS: Bones: 5 [id number] vertebrae are present. There is multilevel retrolisthesis most prominent o f L3 on L4 measuring 9 mm as well as grade 1/2 anterolisthesis of L5 on S1 measuring 1.9 mm. There ap pears to be a pars defect at L5. Multilevel severe degenerative disc space narrowing. Multilevel ante rior osteophytes are present. Multilevel foraminal narrowing moderate to severe is noted most signifi cant at L4-5 and L5-S1. No vertebral body compression fractures. No suspicious bony lesions. Partia lly visualized left hip arthroplasty. Soft tissues: Overlying bowel gas pattern is normal. No suspicious soft tissue calcifications. IMPRESSION: Significant multilevel degenerative changes most severe at L5-S1. Grade 1/2 anterolisthe sis of L5 on S1 with pars defect. Reviewed by: Caitlyn Goldstein MD on 08/31/2022 5:16 PM PST Approved by: Caitlyn Goldstein MD on 08/31/2022 5:16 PM PST Station ID: [id number]
== END 2022-08-31 14:11 | disposition home or self-care (01) ==
LOC: DI.S 14:10
PROVIDERS: ATTEND Registered Nurse
DX: M47.26 Other spondylosis with radiculopathy, lumbar region (principal); M47.27 Other spondylosis with radiculopathy, lumbosacral region

== ENCOUNTER 2023-04-03 18:27 | Outpatient (CLI) | payer MEDICARE | END 2023-04-03 23:59 | disposition critical access hospital (66) | LOC: EMS 18:27 | DX: M54.50 Low back pain, unspecified (principal); R25.2 Cramp and spasm; W19.XXXA Unspecified fall, initial encounter | CPT/HCPCS: A0425; A0427 ==

== ENCOUNTER 2023-04-03 18:51 | Emergency (ER) | payer MEDICARE ==
--- NOTE | 2023-04-03 19:21 | ED Physician Documentation ---
PD HPI MAJOR TRAUMA - Stated complaint Stated Complaint: GLF, LIP LAC, BACK PAIN - Chief complaint Chief Complaint: Trauma Hd/Nk - History obtained from History obtained from: Patient, Family, EMS - Additional information Additional information: 78-year-old gentleman on Eliquis for history of atrial fibrillation, successfully cardioverted 2 weeks ago. He also has a history of right frontal lobe oligodendroglioma. He fell yesterday, simple trip and fall per him. No loss of consciousness. He has a mild headache and he is on Eliquis but his main complaint is low back pain which became much worse today. PD PAST MEDICAL HISTORY - Past Medical History Cardiovascular: Atrial fibrillation Respiratory: None Neuro: Other Endocrine/Autoimmune: None GI: None : None Musculoskeletal: Osteoarthritis - Past Surgical History Past Surgical History: Yes Ortho: Hip replacement, Knee replacement, Rotator cuff repair, Shoulder arthroplasty, Other Cardiovascular: Angioplasty - Present Medications Home Medications: Ambulatory Orders Medication Instructions Recorded Confirmed Albuterol Sulf [Ventolin Hfa 1 applic INH DAILY 06/30/18 01/31/23 Inhaler] Apixaban [Eliquis] 1 tab PO DAILY 06/30/18 01/31/23 Atorvastatin [Lipitor] 40 tab PO DAILY 06/30/18 01/31/23 Fluticasone/Vilanterol [Breo 1 applic INH DAILY 06/30/18 01/31/23 Ellipta 100-25 Mcg INH] Levetiracetam [Keppra Xr] 1 tab PO DAILY 06/30/18 01/31/23 Metoprolol Succinate [Toprol Xl] 1 tab PO DAILY 06/30/18 01/31/23 Dapagliflozin Propanediol [Farxiga] 10 mg PO DAILY 01/31/23 01/31/23 Naproxen Sodium [Aleve] 220 mg PO DAILY 01/31/23 01/31/23 Tamsulosin [Flomax] 0.4 mg PO DAILY 01/31/23 01/31/23 Torsemide [Soaanz] 40 mg PO DAILY 01/31/23 01/31/23 - Allergies Allergies/Adverse Reactions: Allergies Allergy/AdvReac Type Severity Reaction Status Date / Time No Known Drug Allergies Allergy Verified 04/03/23 18:58 - Social History Does the pt smoke?: No Smoking Status: Former smoker Does the pt drink ETOH?: Yes Does the pt have substance abuse?: No - Immunizations Immunizations are current?: Yes - POLST Patient has POLST: No POLST Status: Full Code PD ED PE NORMAL - Vitals Vital signs reviewed: Yes - General General: No acute distress, Well developed/nourished, Other (Mild confusion, chronic per the ) - HEENT HEENT: PERRL, EOMI, Other (Healing abrasion laceration to the left upper lip) - Neck Neck: Supple, no meningeal sign, No bony TTP - Cardiac Cardiac: RRR, No murmur - Respiratory Respiratory: No respiratory distress, Clear bilaterally - Abdomen Abdomen: Non tender - Back Back: No spinal TTP, Other (Quite tender to the left low posterior lateral ribs) - Neuro Eye Opening: Spontaneous Motor: Obeys Commands Verbal: Confused (Mild) GCS Score: 14 - Psych Psych: Normal mood, Normal affect Results - Vitals Vitals: Vital Signs - 24 hr 04/03/23 04/03/23 18:56 21:06 Temperature 36.4 C L Heart Rate 68 70 Respiratory 16 16 Rate Blood Pressure 120/61 122/65 O2 Saturation 98 98 Oxygen O2 Source Room air - Labs Labs: Laboratory Tests 04/03/23 04/03/23 04/03/23 19:00 19:00 19:00 WBC 6.8 RBC 4.47 L Hgb 8.9 L Hct 31.1 L MCV 69.6 L MCH 19.9 L MCHC 28.6 L RDW 23.3 H Plt Count 370 MPV 9.0 Neut # (Auto) 4.3 Lymph # (Auto) 1.2 L Anson # (Auto) 0.9 Eos # (Auto) 0.4 Baso # (Auto) 0.1 Absolute Nucleated RBC 0.00 Nucleated RBC % 0.0 Manual Slide Review Indicated Platelet Estimate NORMAL (130-450,000) Platelet Morphology NORMAL APPEARANCE RBC Morph Micro Appear 1+ HYPOCHROMASIA PT 15.8 H INR 1.5 H Sodium 139 Potassium 3.5 Chloride 103 Carbon Dioxide 26 Anion Gap 10.0 BUN 21 H Creatinine 1.1 Estimated GFR (MDRD) 65 L Glucose 103 H Calcium 8.3 L - Rads (name of study) CT of the head showing known tumor progression, no acute or traumatic findings. CT cervical spine unremarkable. Relevant Findings:: Final report received, EMP independent interpretation of test CT of the chest without traumatic findings. Relevant Findings:: Final report received, EMP independent interpretation of test CT of the lumbar spine showing significant degenerative changes, but no clear trauma. Relevant Findings:: Final report received, EMP independent interpretation of test PD Medical Decision Making - ED course ED course: 78-year-old gentleman with lower grade brain cancer, dementia, anticoagulation had a fall yesterday and injured his lip but prominently has back pain that made him immobile. After a milligram of Dilaudid he was much more mobile but still had a lot of pain with transferring. CT imaging demonstrated no injuries but lab work was notable for microcytic anemia but noting that we do not have any labs on him for the last 5 years so the acuity is not clear. BMP unremarkable. feeling like she could care for him at home and he has a walker at home. Departure - Departure Disposition: 01 Home, Self Care Clinical Impression: Oligodendroglioma, Adequate anticoagulation on anticoagulant therapy, Ground- level fall, Microcytic anemia Lip abrasion Qualifiers: Encounter type: initial encounter Qualified Code(s): S00.511A - Abrasion of lip, initial encounter Back pain Qualifiers: Back pain location: low back pain Chronicity: acute Back pain laterality: left Sciatica presence: without sciatica Qualified Code(s): M54.50 - Low back pain, unspecified Condition: Good Record reviewed to determine appropriate education?: Yes Instructions: ED Head Injury Closed, ED Neck Back Pain General Comments: As discussed, work-up tonight shows that David is fairly anemic and this should be mentioned both Dr. Hodge as well as your padding gluer oncologist. He has a lot of arthritis in his back but no evidence of serious injuries on CT of the head, neck, chest, and lumbar spine. He can take the hydrocodone you have at home per package instructions. Return if worse.
[2023-04-03 19:28] LABS: BASOPHILS # (AUTO) 0.1 10^3/uL (0.0-0.1); BASOPHILS % (AUTO) 0.7 %; EOSINOPHILS # (AUTO) 0.4 10^3/uL (0.0-0.7); EOSINOPHILS % (AUTO) 5.1 %; HCT - HEMATOCRIT 31.1 % (42.0-52.0); HGB - HEMOGLOBIN 8.9 g/dL (14.0-18.0); LYMPHOCYTES # (AUTO) 1.2 10^3/uL (1.5-3.5); LYMPHOCYTES % (AUTO) 18.1 %; MEAN CORPUSCULAR HEMOGLOBIN 19.9 pg (27.0-31.0); MEAN CORPUSCULAR HGB CONC 28.6 g/dL (32.0-36.0); MEAN CORPUSCULAR VOLUME 69.6 fL (80.0-94.0); MONOCYTES # (AUTO) 0.9 10^3/uL (0.0-1.0); MONOCYTES % (AUTO) 13.6 %; NEUTROPHILS # (AUTO) 4.3 10^3/uL (1.5-6.6); NEUTROPHILS % (AUTO) 62.4 %; PLT - PLATELET COUNT 370 10^3/uL (130-450); RED BLOOD COUNT 4.47 10^6/uL (4.70-6.10); RED CELL DISTRIBUTION WIDTH 23.3 % (12.0-15.0); WHITE BLOOD COUNT 6.8 x10^3/uL (4.8-10.8)
[2023-04-03 19:29] LABS: CALCIUM 8.3 mg/dL (8.5-10.3); CREATININE 1.1 mg/dL (0.6-1.2); POTASSIUM 3.5 mmol/L (3.5-5.0)
[2023-04-03 19:31] LABS: SLIDE REVIEW? Indicated
[2023-04-03 19:34] LABS: INR 1.5 (0.8-1.2); PT - PROTHROMBIN TIME 15.8 secs (9.9-12.6)
[2023-04-03 19:56] LABS: PLATELET ESTIMATE, MANUAL NORMAL (130-450,000) (NORMAL); PLATELET MORPHOLOGY NORMAL APPEARANCE (NORMAL)
--- NOTE | 2023-04-03 20:13 | CT Report ---
PROCEDURE: HEAD WO INDICATIONS: Fall with head and back injuries TECHNIQUE: Noncontrast 4.5 mm thick angled axial sections acquired from the foramen magnum to the vertex. For r adiation dose reduction, the following was used: automated exposure control, adjustment of mA and/or kV according to patient size. COMPARISON: CT head 06/30/2018, MRI brain 07/11/2022. FINDINGS: Image quality: Excellent. CSF spaces: There is mild cerebral volume loss with prominence of the ventricles and sulci. Basal ci sterns are patent. No extra-axial fluid collections. Brain: No acute intracranial hemorrhage. There is ill-defined hypoattenuating partially calcified in filtrative mass redemonstrated within the inferior right frontal lobe and anterior right temporal lob e with involvement of the basal ganglia and caudate nucleus. There is progressive slight increase in size compared to the prior studies with increased effacement of the anterior horn of the right latera l ventricle and increased leftward mediastinal shift of approximately 0.4 cm compared to 0.2 cm previ ously. A hypoattenuating cystic or necrotic component within the mass is redemonstrated. Skull and face: Calvarium and visualized facial bones demonstrate no acute fractures. Sinuses: Visualized sinuses and mastoids are clear. IMPRESSION: 1. No definite acute traumatic intracranial abnormality. 2. Progressive increase in size of an infiltrative hypoattenuating ill-defined partially calcified ma ss centered in the inferior right frontal lobe with associated increased mass effect. The findings ar e again consistent with a low-grade tumor such as an oligodendroglioma. Reviewed by: Isaak Bustamante MD on 04/03/2023 8:11 PM PDT Approved by: Isaak Bustamante MD on 04/03/2023 8:11 PM PDT Station ID: [id number]
--- NOTE | 2023-04-03 20:14 | CT Report ---
PROCEDURE: CERVICAL SPINE WO INDICATIONS: Fall with head and back injuries TECHNIQUE: Noncontrast 3 mm thick sections acquired from the skull base to the T4 level. Sagittal and coronal r eformats were then constructed. For radiation dose reduction, the following was used: automated exp osure control, adjustment of mA and/or kV according to patient size. COMPARISON: None. FINDINGS: Image quality: Excellent. Bones: No fractures or subluxation. There is straightening of the cervical lordosis. Multilevel dege nerative disc disease and facet arthropathy are present. Visualized superior ribs are intact. Soft tissues: Prevertebral soft tissues are normal in thickness. No paravertebral hematomas. No ap ical pneumothoraces. IMPRESSION: 1. No acute fracture or subluxation. Reviewed by: Isaak Bustamante MD on 04/03/2023 8:13 PM PDT Approved by: Isaak Bustamante MD on 04/03/2023 8:13 PM PDT Station ID: [id number]
--- NOTE | 2023-04-03 20:22 | CT Report ---
PROCEDURE: CHEST WO INDICATIONS: Fall with back injuries; kenia L low post ribs` TECHNIQUE: Noncontrast 1mm axial images were acquired from the pulmonary apices to the posterior costophrenic an gles. Axial 5 mm soft tissue kernel reconstructions were performed as well as 8 mm axial MIP and cor onal and sagittal 5 mm reformations. For radiation dose reduction, the following was used: automate d exposure control, adjustment of mA and/or kV according to patient size. COMPARISON: None. FINDINGS: Image quality: Excellent. CHEST: Lower Neck: No lymphadenopathy by size criteria. Thyroid: Visualized thyroid demonstrates no discrete nodules. Axillae: No lymphadenopathy by size criteria. Chest Wall: Unremarkable. Bones: No acute fractures identified. There is a sclerotic focus within the T5 vertebral body saw offbearer ior inferiorly which is nonspecific and may represent a bone island. Lungs and Airways: No pulmonary contusions or lacerations. No acute consolidation. There are linea r areas of scarring and atelectasis within the lung bases. There are a few small peripheral subpleura l nodules within the left lingula and perihilar region of the right upper lobe measuring up to 0.3 cm likely representing sequelae of an infectious or inflammatory process. The trachea and central airwa ys are patent. Pleura: No pneumothorax or pleural effusions.Pleural thickening demonstrated in the left lung base. Heart: Heart size is at the upper limits of normal. No pericardial effusion. Thoracic Vessels: The aorta and pulmonary arteries are normal in size. Mediastinum and Bonnie: No lymphadenopathy by size criteria. No definite mediastinal hematomas. Esophagus: No wall thickening. No hiatal hernia. Upper Abdomen: Unremarkable. IMPRESSION: 1. No definite acute traumatic abnormality in the thorax. Reviewed by: Isaak Bustamante MD on 04/03/2023 8:20 PM PDT Approved by: Isaak Bustamante MD on 04/03/2023 8:20 PM PDT Station ID: [id number]
--- NOTE | 2023-04-03 20:29 | CT Report ---
PROCEDURE: LUMBAR SPINE WO INDICATIONS: Fall with head and back injuries TECHNIQUE: Noncontrast 3 mm thick sections acquired from the T12 level to the sacrum. Sagittal and coronal refo rmats were constructed. For radiation dose reduction, the following was used: automated exposure co ntrol, adjustment of mA and/or kV according to patient size. COMPARISON: None. FINDINGS: Image quality: Excellent. Bones: There is minimal retrolisthesis at L1-L2, L2-L3, L3-L4, and L4-L5. There is anterolisthesis o f L5 on S1 measuring approximately 1.0 cm. There are associated bilateral pars defects at L5. No acut e vertebral body compression fractures. No suspicious lytic or blastic bony lesions. T12-L1: Mild loss of disc height with a minimal displaced. No spinal canal or neuroforaminal narrowin g. L1-L2: Mild loss of disc height with reactive endplate sclerosis along the inferior plate of L1 as we ll as small Schmorl's nodes. There is a small broad-based disc bulge. There is mild spinal canal narr owing with mild bilateral neuroforaminal narrowing. L2-L3: Severe loss of disc height with vacuum disc.. Phenomenon. There is reactive endplate sclerosis . There small broad-based disc bulge is present as well as mild facet arthropathy and ligament flavum hypertrophy. Findings contribute to mild to moderate spinal canal narrowing with moderate to severe right and moderate left neuroforaminal narrowing. L3-L4: Moderate to severe loss of disc height with a small disc osteophyte complex. There is mild to moderate facet arthropathy and ligament flavum hypertrophy. Findings contribute to moderate spinal ca nal narrowing with moderate bilateral neuroforaminal narrowing. L4-L5: Moderate loss of disc height with reactive endplate sclerosis and osteophytosis. There is a sm all broad-based disc bulge. There is moderate facet arthropathy. There is mild spinal canal narrowing with moderate bilateral neuroforaminal narrowing. L5-S1: Moderate loss of disc height with anterolisthesis. There is mild facet arthropathy. No spinal canal narrowing. There is severe bilateral neuroforaminal narrowing. Soft tissues: No retroperitoneal masses or hematomas. Visualized aorta is normal in caliber. IMPRESSION: 1. No acute fractures. 2. Bilateral pars defects at L5 with anterolisthesis of L5 on S1 measuring approximately 1 cm. In ass ociation with degenerative changes, there is resultant bilateral severe neuroforaminal narrowing at L 5-S1. 3. Additional multilevel neuroforaminal narrowing throughout the lumbar spine including moderate to s evere narrowing on the right at L2-L3. Reviewed by: Isaak Bustamante MD on 04/03/2023 8:28 PM PDT Approved by: Isaak Bustamante MD on 04/03/2023 8:28 PM PDT Station ID: [id number]
[2023-04-03 21:08] VITALS: BP 122/65
[2023-04-03] MEDS: HYDROmorphone 1 MG/ML CARPUJECT IVP STA (21:29)
[2023-04-03] MEDS: HYDROcod/ACET 5/325 Prepack 4 PO STA (21:29)
== END 2023-04-03 21:39 | disposition home or self-care (01) ==
LOC: EDUNIT# → ED 18:51
DX: M47.816 Spondylosis without myelopathy or radiculopathy, lumbar region (principal); S00.511D Abrasion of lip, subsequent encounter; W01.0XXD Fall on same level from slipping, tripping and stumbling without subsequent striking against object, subsequent encounter; D49.6 Neoplasm of unspecified behavior of brain; D50.9 Iron deficiency anemia, unspecified; I48.91 Unspecified atrial fibrillation; Z79.01 Long term (current) use of anticoagulants; Z87.891 Personal history of nicotine dependence
CPT/HCPCS: 36415; 70450; 71250; 72125; 72131; 80048; 85025; 85610; 96374; 99283; 99284; J1170

== ENCOUNTER 2023-08-25 14:07 | Outpatient (CLI) | payer MEDICARE ==
[2023-08-25 20:21] LABS: BASOPHILS # (AUTO) 0.1 10^3/uL (0.0-0.1); BASOPHILS % (AUTO) 0.7 %; EOSINOPHILS # (AUTO) 0.2 10^3/uL (0.0-0.7); EOSINOPHILS % (AUTO) 1.8 %; HCT - HEMATOCRIT 47.7 % (42.0-52.0); HGB - HEMOGLOBIN 15.3 g/dL (14.0-18.0); LYMPHOCYTES # (AUTO) 1.5 10^3/uL (1.5-3.5); MEAN CORPUSCULAR HEMOGLOBIN 30.9 pg (27.0-31.0); MEAN CORPUSCULAR HGB CONC 32.1 g/dL (32.0-36.0); MEAN CORPUSCULAR VOLUME 96.4 fL (80.0-94.0); MEAN PLATELET VOLUME 10.7 fL (7.4-11.4); MONOCYTES # (AUTO) 0.8 10^3/uL (0.0-1.0); MONOCYTES % (AUTO) 8.6 %; NEUTROPHILS # (AUTO) 6.3 10^3/uL (1.5-6.6); NEUTROPHILS % (AUTO) 71.7 %; PLT - PLATELET COUNT 251 10^3/uL (130-450); RED BLOOD COUNT 4.95 10^6/uL (4.70-6.10); RED CELL DISTRIBUTION WIDTH 14.8 % (12.0-15.0); WHITE BLOOD COUNT 8.8 x10^3/uL (4.8-10.8)
[2023-08-25 20:29] LABS: ALBUMIN 4.2 g/dL (3.2-5.5); ALBUMIN/GLOBULIN RATIO 1.6 (1.0-2.2); BILIRUBIN,TOTAL 1.8 mg/dL (0.2-1.0); CALCIUM 9.3 mg/dL (8.5-10.3); CREATININE 1.2 mg/dL (0.6-1.3); POTASSIUM 3.5 mmol/L (3.5-4.5); TOTAL PROTEIN 6.8 g/dL (6.4-8.9)
== END 2023-08-25 14:08 | disposition home or self-care (01) ==
LOC: LAB.S 14:07
PROVIDERS: ATTEND Nurse Practitioner Adult Health
DX: I50.9 Heart failure, unspecified (principal); D64.9 Anemia, unspecified
CPT/HCPCS: 36415; 80053; 85025

== ENCOUNTER 2024-03-21 07:26 | Outpatient (CLI) | payer MEDICARE | END 2024-03-21 23:59 | disposition EMS.NT | LOC: EMS 07:26 | DX: M54.50 Low back pain, unspecified (principal); W19.XXXA Unspecified fall, initial encounter; Y92.099 Unspecified place in other non-institutional residence as the place of occurrence of the external cause; R15.9 Full incontinence of feces; F03.90 Unspecified dementia, unspecified severity, without behavioral disturbance, psychotic disturbance, mood disturbance, and anxiety ==

== ENCOUNTER 2024-03-28 09:50 | Outpatient (CLI) | payer MEDICARE | END 2024-03-28 09:51 | disposition home or self-care (01) | LOC: EMS 09:50 | PROVIDERS: ATTEND Family Medicine | DX: Z51.5 Encounter for palliative care (principal); R41.0 Disorientation, unspecified; R45.1 Restlessness and agitation; Z74.01 Bed confinement status | CPT/HCPCS: A0425; A0428 ==